=== PATIENT | female | born 1930 | race Two or more races ===

== ENCOUNTER 2017-12-19 09:54 | Day surgery (SDC) | payer BC, OTHER ==
[2017-12-18 11:31] VITALS: BMI 27.0
--- NOTE | 2017-12-19 08:10 | HP ---
Satellite [facility] - Chief Complaint Chief Complaint: left cts - Past Medical History Allergies/Adverse Reactions: Allergies Allergy/AdvReac Type Severity Reaction Status Date / Time No Known Drug Allergies Allergy Verified 12/18/17 11:54 - Current Medications Current Medications: Home Medications Medication Instructions Recorded Albuterol Sulfate [Proventil HFA 1 - 2 inh PO TID PRN 12/18/17 Inhaler -] Calcium Citrate/Vitamin D3 1 each PO DAILY 12/18/17 [Calcitrate + Vit D Caplet] Cholecalciferol (Vitamin D3) 50,000 unit PO WEEKLY 12/18/17 [Optimal D3] Diclofenac Sodium [Pennsaid] 2 gm TP DAILY 12/18/17 Ferrous Sulfate 325 mg PO DAILY 12/18/17 Gabapentin 300 mg PO DAILY 12/18/17 Levothyroxine [Synthroid -] 25 mcg PO DAILY 12/18/17 Meclizine HCl 12.5 mg PO DAILY 12/18/17 Megestrol Acetate [Megace -] 40 mg PO DAILY 12/18/17 Meloxicam [Mobic] 15 mg PO DAILY 12/18/17 Multivit-Min/Iron Fum/Folic AC 1 each PO DAILY 12/18/17 [Cbuan-Lylecko-Ngmdsdyz Tablet] Olmesartan Medoxomil [Benicar -] 40 mg PO DAILY 12/18/17 Pantoprazole Sodium [Protonix] 40 mg PO DAILY 12/18/17 Rosuvastatin Calcium [Crestor] 10 mg PO HS 12/18/17 Tiotropium [place] [Spiriva] 1 inh PO DAILY 12/18/17 Zolpidem Tartrate [Ambien] 10 mg PO HS 12/18/17 Hydrocodone/Acetaminophen [[place] 1 each PO Q6H PRN #20 tablet MDD 4 12/19/17 5-325 Tablet] Satellite Physical Exam - Physical Examination General Appearance: Well Nourished, Well Developed, Alert & Oriented x3 ENT: Clear Lung: Normal air movement Heart: Regular rate & rhythm Extremities: Other (left hand- + phalens, + ttp EMG + cts) Neurological: Intact, Alert, Oriented Satellite Impression/Plan - Impression/Plan Impression: left cts Operative Procedure: left ctr Date to be Performed: 12/19/17
[2017-12-19] MEDS ORDERED: MIDAZOLAM HCL 2 MG/2 ML SINGLE DOSE VIAL ONE ×2 (11:52→12:17)
[2017-12-19] MEDS ORDERED: LIDOCAINE HCL 1%, 10 MG/ML (20ML VIAL) ONE (12:09)
[2017-12-19] MEDS ORDERED: BUPIVACAINE HCL/PF 0.5% (5MG/ML) 10 ML VIAL ONE (12:09)
[2017-12-19] MEDS ORDERED: PROPOFOL 20 ML ONE ×2 (12:18)
[2017-12-19] MEDS ORDERED: SUCCINYLCHOLINE CHLORIDE 200 MG/10 ML VIAL ONE (12:19)
[2017-12-19] MEDS ORDERED: ceFAZolin SODIUM 1 GM VIAL ONE (12:58)
[2017-12-19] MEDS ORDERED: LIDOCAINE HCL 1%, 10 MG/ML (20ML VIAL) INF ONE (13:13)
[2017-12-19] MEDS ORDERED: BUPIVACAINE HCL/PF 0.5% (5MG/ML) 10 ML VIAL IJ ONE (13:27)
--- NOTE | 2017-12-19 13:36 | OP ---
Operative Note - Note: Operative Date: 12/19/17 Pre-Operative Diagnosis: right CTS Operation: right CTR, tenosynovectomy Post-Operative Diagnosis: Same as Pre-op Surgeon: Sanjiv Fontaine Anesthesiologist/CARBURETOR REPAIRER: Jaxson Mueller Anesthesia: Local, MAC Specimens Removed: tenosynovium Estimated Blood Loss (mls): 0 Drains, Volume Out (mls): 0 Blood Volume Replaced (mls): 0 Fluid Volume Replaced (mls): 700 Operative Report Dictated: Yes
[2017-12-19] MEDS ORDERED: ACETAMINOPHEN 325 MG TABLET (FP) PO PRN (14:21)
[2017-12-19] MEDS ORDERED: LACTATED RINGERS SOLUTION 1,000 ML IV SCH (14:30)
[2017-12-19 14:53] VITALS: TEMP 98.1
[2017-12-19 15:21] VITALS: BP 117/69; PULSE 80
--- NOTE | 2017-12-20 06:52 | SPEC ---
DATE OF OPERATION: 12/19/2017 PREOPERATIVE DIAGNOSIS: Right carpal tunnel syndrome. POSTOPERATIVE DIAGNOSIS: Right carpal tunnel syndrome. OPERATION: Right carpal tunnel release and tenosynovectomy. SURGEON: Adalberto Martin M.D. ASSISTANTS: None. ANESTHESIA: MAC, local injection with 12 mL of 0.5% Marcaine and 1% lidocaine mix. ANESTHESIOLOGIST: Jaxson Mueller M.D. DRAINS: None. COMPLICATIONS: None. SPECIMENS: Tenosynovium, right wrist. BLOOD LOSS: None. BLOOD GIVEN: None. FLUID REPLACEMENT: 500 mL. INDICATIONS: This patient is an 87-year-old female with the preoperative diagnosis of severe bilateral carpal tunnel syndrome. After understanding the potential risks, complications, alternatives and benefits of surgery versus nonsurgical treatment, the patient elected to undergo this procedure. She has realistic expectations about her recovery. She will not get complete relief of her symptoms, including continuation of her numbness. This was all explained in both Bulgarian and Panamanian multiple times. She understands this, and is going forward with surgery. DESCRIPTION OF PROCEDURE: The patient was brought to the operating room, peripheral IV placed and intravenous sedation was given. One gram of intravenous Ancef was given. MAC anesthesia was induced. A tourniquet was applied to the right upper arm and the right upper extremity was prepped and draped in sterile fashion. The entire case was done under 3.8 loupe magnification. A marking pen was utilized to chen out a longitudinal incision in an already existing skin crease. Twenty mL of 0.5% Marcaine mixed with 1% Lidocaine was injected in and around the surgical incision. The right upper extremity was elevated, exsanguinated with an Esmarch bandage and the tourniquet inflated to 250 mmHg. A No. 15 scalpel blade was utilized to cut down through the skin. Subcutaneous hemostasis was achieved with the bipolar cautery. Dissection was done through the superficial palmar fascia. Self-retaining retractors were placed into the wound. Under direct visualization, the transverse carpal ligament was transected with a No. 15 scalpel blade, exposing the median nerve and the contents of the carpal tunnel. The distal and proximal extents of the release were completed with a Littler scissor and checked with irrigation and my small finger. They were seen to be complete. Limited dissection was done on the radial side of the median nerve and more extensive dissection was done on the ulnar side of the median nerve. The patients nerve was seen to be quite compressed by epineurium and therefore a limited epineurotomy was performed. A Ragnell retractor was used to gently retract the median nerve in a radial direction. The patient had a lot of tenosynovitis and therefore a tenosynovectomy was performed off all 9 flexor tendons. This was passed off the field as tenosynovium right wrist. The floor of the carpal tunnel was checked. There were no abnormal masses or ganglion cysts. The area was copiously irrigated and washed out and closure begun. Undyed 4-0 Vicryl was used to close the deep dermal layer. Final skin reapproximation was done with horizontal mattress 4-0 nylon sutures. The area was then washed and dried, covered with Xeroform, 4x4s, fluffs between the fingers, Webril and a 4-inch plaster roll was utilized to make a volar splint, which was then wrapped with Radu and Coban. The tourniquet was taken down after a total tourniquet time of 18 minutes. There were no complications during the case. The patient tolerated the procedure well and was brought to the ambulatory recovery room in stable condition. ADALBERTO MARTIN M.D. [id number]
--- NOTE | 2017-12-21 14:47 | PATH ---
Surgical Pathology Report Patient Name: ELLE RUIZ [facility]. Rec. #: [id number] /Age/Gender: 1930 (Age: 87) / F Account: [id number] Location: [facility] SURGICAL Taken: 12/19/2017 Received: 12/20/2017 Reported: 12/21/2017 Physicians: Sanjiv Fontaine M.D. Specimen(s) Received TENOSYNOVIUM, LEFT HAND Clinical History Carpal Tunnel syndrome left hand Final Diagnosis SOFT TISSUE, LEFT HAND, CARPAL TUNNEL RELEASE: TENOSYNOVIUM. Electronically Signed Graeme Horvath M.D. Gross Description Received in formalin labeled "tenosynovium left hand," is a 1.6 x 1.0 x 0.3 cm aggregate of multiple santo-yellow, irregular portions of soft tissue, consistent with tenosynovium. The specimen is submitted in toto in one cassette. 12/20/201712/20/2017
== END 2017-12-19 15:24 | disposition home or self-care (01) ==
LOC: JASU-SURG 09:54
PROVIDERS: ATTEND Orthopaedic Surgery
PROC: 0LB50ZZ Excision of Right Lower Arm and Wrist Tendon, Open Approach (ICD-10-PCS; 2017-12-19)
PROC: 01N50ZZ Release Median Nerve, Open Approach (ICD-10-PCS; principal; 2017-12-19 11:00)
DX: G56.01 Carpal tunnel syndrome, right upper limb (principal)
CPT/HCPCS: 88304-TC; 94760

== ENCOUNTER 2018-02-13 10:22 | Day surgery (SDC) | payer BC, OTHER ==
[2018-02-12 08:54] VITALS: BMI 25.7
--- NOTE | 2018-02-13 08:05 | HP ---
Satellite [facility] - Chief Complaint Chief Complaint: right hand pain, numbness, weakness History of Present Illness: right CTS History Source: Patient Limitations to Obtaining History: No Limitations - Past Medical History Allergies/Adverse Reactions: Allergies Allergy/AdvReac Type Severity Reaction Status Date / Time No Known Drug Allergies Allergy Verified 12/18/17 11:54 - Current Medications Current Medications: Home Medications Medication Instructions Recorded Calcium Citrate/Vitamin D3 1 each PO DAILY 12/18/17 [Calcitrate + Vit D Caplet] Cholecalciferol (Vitamin D3) 50,000 unit PO WEEKLY 12/18/17 [Optimal D3] Diclofenac Sodium [Pennsaid] 2 gm TP DAILY 12/18/17 Ferrous Sulfate 325 mg PO DAILY 12/18/17 Gabapentin 300 mg PO DAILY 12/18/17 Levothyroxine [Synthroid -] 25 mcg PO DAILY 12/18/17 Meclizine HCl 12.5 mg PO BID 12/18/17 Multivit-Min/Iron Fum/Folic AC 1 each PO DAILY 12/18/17 [Jocqs-Qkqdlmh-Ovnjoejl Tablet] Rosuvastatin Calcium [Crestor] 10 mg PO HS 12/18/17 Tiotropium [place] [Spiriva] 1 inh PO DAILY PRN 12/18/17 Zolpidem Tartrate [Ambien] 10 mg PO HS PRN 12/18/17 Hydrocodone/Acetaminophen [[place] 1 each PO Q6H PRN #20 tablet MDD 4 12/19/17 5-325 Tablet] Amlodipine Besylate 10 mg PO DAILY 02/12/18 Satellite Physical Exam - Physical Examination General Appearance: Well Nourished ENT: Clear Lung: Clear to auscultation Heart: Regular rate & rhythm Breasts: Soft Abdomen: Soft Extremities: No edema Satellite Impression/Plan - Impression/Plan Impression: right CTS Operative Procedure: right CTR Date to be Performed: 02/13/18
[2018-02-13] MEDS ORDERED: ceFAZolin SODIUM 1 GM VIAL ONE (12:04)
[2018-02-13] MEDS ORDERED: ceFAZolin SODIUM 1 GM VIAL IVPB ONE (12:08)
[2018-02-13] MEDS ORDERED: LIDOCAINE HCL 1%, 10 MG/ML (20ML VIAL) ONE (12:12)
[2018-02-13] MEDS ORDERED: BUPIVACAINE HCL/PF 0.5% (5MG/ML) 10 ML VIAL NR ONE (12:23)
[2018-02-13] MEDS ORDERED: LIDOCAINE HCL 1%, 10 MG/ML (20ML VIAL) INF ONE (12:23)
[2018-02-13] MEDS ORDERED: PHENYLEPHRINE HCL 10 MG/1 ML SINGLE DOSE VIAL ONE (12:39)
--- NOTE | 2018-02-13 12:47 | OP ---
Operative Note - Note: Operative Date: 02/13/18 Pre-Operative Diagnosis: right CTS Operation: right CTR Post-Operative Diagnosis: Same as Pre-op Surgeon: Sanjiv Fontaine Anesthesiologist/PERMACULTURE CONTRACTOR: Lane Kent Anesthesia: Local, MAC Specimens Removed: tenosynovium Estimated Blood Loss (mls): 0 Blood Volume Replaced (mls): 0 Fluid Volume Replaced (mls): 500 Operative Report Dictated: Yes
--- NOTE | 2018-02-13 13:38 | SPEC ---
DATE OF OPERATION: 02/13/2018 PREOPERATIVE DIAGNOSIS: Right carpal tunnel syndrome. POSTOPERATIVE DIAGNOSIS: Right carpal tunnel syndrome. PROCEDURE: Right carpal tunnel release and tenosynovectomy. SURGEON: Sanjiv Fontaine MD BILLIARD PARLOR MANAGER: None. ANESTHESIOLOGIST: Lane Kent MD ANESTHESIA: MAC with local injection of 12 mL of 0.5% Marcaine, 1% lidocaine mixed. DRAINS: None. COMPLICATIONS: None. SPECIMENS: Tenosynovium, right wrist. BLOOD LOSS: None. BLOOD GIVEN: None. FLUID REPLACEMENT: 500 mL. INDICATION FOR PROCEDURE: This patient is an 87-year-old female with a preoperative diagnosis of severe right carpal tunnel syndrome. After understanding the potential risks, complications, alternatives, and benefits of surgery versus nonsurgical treatment, the patient elected to undergo this procedure. DESCRIPTION OF PROCEDURE: The patient was brought to the operating room, peripheral IV placed and intravenous sedation was given. One gram of intravenous Ancef was given. MAC anesthesia was induced. A tourniquet was applied to the right upper arm and the right upper extremity was prepped and draped in sterile fashion. The entire case was done under 3.8 loupe magnification. A marking pen was utilized to chen out a longitudinal incision in an already existing skin crease. Twenty mL of 0.5% Marcaine mixed with 1% Lidocaine was injected in and around the surgical incision. The right upper extremity was elevated, exsanguinated with an Esmarch bandage and the tourniquet inflated to 250 mmHg. A No. 15 scalpel blade was utilized to cut down through the skin. Subcutaneous hemostasis was achieved with the bipolar cautery. Dissection was done through the superficial palmar fascia. Self-retaining retractors were placed into the wound. Under direct visualization, the transverse carpal ligament was transected with a No. 15 scalpel blade, exposing the median nerve and the contents of the carpal tunnel. The distal and proximal extents of the release were completed with a Littler scissor and checked with irrigation and my small finger. They were seen to be complete. Limited dissection was done on the radial side of the median nerve and more extensive dissection was done on the ulnar side of the median nerve. The patients nerve was seen to be quite compressed by epineurium and therefore a limited epineurotomy was performed. A Ragnell retractor was used to gently retract the median nerve in a radial direction. The patient had a lot of tenosynovitis and therefore a tenosynovectomy was performed off all 9 flexor tendons. This was passed off the field as tenosynovium, right wrist. The floor of the carpal tunnel was checked. There were no abnormal masses or ganglion cysts. The area was copiously irrigated and washed out and closure begun. Undyed 4-0 Vicryl was used to close the deep dermal layer. Final skin reapproximation was done with horizontal mattress 4-0 nylon sutures. The area was then washed and dried, covered with Xeroform, 4x4s, fluffs between the fingers, Webril and a 4-inch plaster roll was utilized to make a volar splint, which was then wrapped with Radu and Coban. The tourniquet was taken down after a total tourniquet time of 18 minutes. There were no complications during the case. The patient tolerated the procedure well and was brought to the ambulatory recovery room in stable condition. Beto [id number]
[2018-02-13] MEDS ORDERED: ACETAMINOPHEN 325 MG TABLET (FP) PO ONE ×3 (13:39→13:49)
[2018-02-13 13:43] VITALS: TEMP 97.9
[2018-02-13] MEDS ORDERED: ACETAMINOPHEN 325 MG TABLET (FP) ONE (13:47)
[2018-02-13 14:15] VITALS: BP 150/69; PULSE 66
--- NOTE | 2018-02-15 13:54 | PATH ---
Surgical Pathology Report Patient Name: ELLE RUIZ Med. Rec. #: [id number] /Age/Gender: 1930 (Age: 87) / F Account: [id number] Location: [facility] SURGICAL Taken: 02/13/2018 Received: 02/14/2018 Reported: 02/15/2018 Physicians: Sanjiv Fontaine M.D. Specimen(s) Received TENOSYNOVIUM, RIGHT CARPAL TUNNEL Clinical History Right carpal tunnel syndrome Final Diagnosis SOFT TISSUE, RIGHT WRIST, CARPAL TUNNEL RELEASE: TENOSYNOVIUM. Electronically Signed Graeme Horvath M.D. Gross Description Received in formalin labeled "tenosynovium right carpal tunnel," is a 1.4 x 1.0 x 0.2 cm aggregate of santo-yellow soft tissue fragments. The specimen is submitted in toto in one cassette. 02/14/201802/14/2018
== END 2018-02-13 13:47 | disposition home or self-care (01) ==
LOC: JASU-SURG 10:22
PROVIDERS: ATTEND Orthopaedic Surgery
PROC: 0LB50ZZ Excision of Right Lower Arm and Wrist Tendon, Open Approach (ICD-10-PCS; 2018-02-13)
PROC: 01N50ZZ Release Median Nerve, Open Approach (ICD-10-PCS; principal; 2018-02-13 12:30)
DX: G56.01 Carpal tunnel syndrome, right upper limb (principal)